=== PATIENT | male | born 1970 | race Two or more races ===

== ENCOUNTER 2024-10-14 15:43 | Emergency (ER) | payer OTHER ==
[~2024-10-14] VITALS: Ht 172.7 cm; Wt 99.0 kg
[2024-10-14 16:47] LABS: Urine Bacteria None Seen /hpf (None Seen)
[2024-10-14 16:59] LABS: Urine Blood Negative /uL (Negative); Urine Clarity Clear (Clear); Urine Color Yellow (Yellow); Urine Protein, UAD Negative (Negative); Urine Specific Gravity 1.023 (1.001-1.035); Urine Squamous Epithelial Cell None Seen /hpf (<5); Urine Urobilinogen Normal (Negative)
[2024-10-14 17:00] LABS: Urine WBC < 1 /HPF (0-3)
--- NOTE | 2024-10-14 17:02 | DVH ---
Indication: Left-sided testicular pain Technique: Real-time ultrasound images through the scrotum. Comparison: None Findings: Right testicle measures 3 x 2.4 x 2.9 cm. It has normal echogenicity . Right testicular calcificati on measuring 3 mm.. There is normal flow on color Doppler, with normal waveforms. The right epididyma l head measures 1.1 cm. Heterogeneous appearance of the right testicle with some increased vascular ity. Right testicular appendix. Cyst adjacent to the right testicle measuring 5 mm. Left varicocele measures 3 mm in diameter Left testicle measures 2.8 x 2.3 x 2. cm. It has normal echogenicity and echotexture, with no focal solid or cystic mass. There is normal flow on color Doppler, with normal waveforms. The left epididym al head measures 0.9 cm, and has no focal masses. There are moderate 2 large size bilateral hydroceles, [id number]. Impression: 1. [id number] bilateral hydroceles. 2. Left varicocele measuring 3 mm in diameter. 3. Heterogeneous appearance of the right epididymis with some increased vascularity, may represent ep ididymitis
--- NOTE | 2024-10-14 17:05 | ED.PDOC ---
General HPI Comments 54 year old male presents to the ED with a chief complaint of LT testicle pain onset 4 days. Patient states he has been experiencing LT testicle pain radiates to pelvic region for the past 4 days, worsened today. Denies any trauma, penile discharge, dysuria, hematuria, fevers, chills. No other symptoms or modifying factors present at this time. Vital signs were stable at arrival. Patient denies any unprotected sex. Chief Complaint: Testicle Pain Time Seen by MD: 16:35 Primary Care Provider: WOO Reviewed notes: Nurses Notes, Medications, Allergies Allergies: Coded Allergies: NO KNOWN ALLERGIES (Unverified , 10/14/24) Home Meds Active Scripts Ibuprofen Micronized (Ibuprofen) 800 Mg Tab, 800 MG PO Q8HP PRN, #30 TAB Prov:MIRI EARLY Pollo PAC 10/14/24 Information Source: Patient Mode of Arrival: Ambulatory Severity: Moderate Timing: Days Duration: Since onset Prehospital treatment: None Onset: Spontaneous Symptoms: Other (testicle pain) History of: None Location: Other (LT testicle) Penile discharge: None Modifying factors: None associated signs and symptoms: Other Past Medical History PAST MEDICAL HISTORY: Denies Surgical History: Denies all surgeries Family History Family History: Reviewed,noncontributory to illness, No family hx of Cancer, No family hx of DM, No family hx of Heart sixto, No family hx of HTN, No family hx ofKidney sixto, No family hx of Liver sixto, No family hx of Lung sixto, No family hx of Stroke Social History Smoker: Non-Smoker Alcohol: Denies ETOH Use Drugs: Denies Drug Use Lives In: Home Constitutional: denies: chills, diaphoresis, fatigue, fever, malaise, sweats, weakness, others EENTM: denies: blurred vision, double vision, ear bleeding, ear discharge, ear drainage, ear pain, ear ringing, eye pain, eye redness, hearing loss, mouth pain, mouth swelling, nasal discharge, nose bleeding, nose congestion, nose pain, photophobia, tearing, throat pain, throat swelling, voice changes, others Respiratory: denies: cough, hemoptysis, orthopnea, SOB at rest, shortness of breath, SOB with excertion, stridor, wheezing, others Cardiovascular: denies: chest pain, dizzy spells, diaphoresis, Dyspnea on exertion, edema, irregular heart beat, left arm pain, lightheadedness, palpitations, PND, syncope, others Gastrointestinal: denies: abdomen distended, abdominal pain, blood streaked bowels, constipated, diarrhea, dysphagia, difficulty swallowing, hematemesis, melena, nausea, poor appetite, poor fluid intake, rectal bleeding, rectal pain, vomiting, others Genitourinary: reports: testicle pain (LT); denies: burning, dysuria, flank pain, frequency, hematuria, incontinence, penile discharge, penile sore, pain, testicle swelling, urgency, others Neurological: denies: dizziness, fainting, headache, left sided numbness, left sided weakness, numbness, paresthesia, pre-existing deficit, right sided numbness, right sided weakness, seizure, speech problems, tingling, tremors, weakness, others Musculoskeletal: denies: back pain, gout, joint pain, joint swelling, muscle pain, muscle stiffness, neck pain, others Integumetry: denies: bruises, change in color, change in hair/nails, dryness, laceration, lesions, lumps, rash, wounds, others Allergic/Immunocompromised: denies: Difficulty Healing, Frequent Infections, Hives, Itching, others Hematologic/Lymphatic: denies: anemia, blood clots, easy bleeding, easy bruising, swollen glands, others Endocrine: denies: excessive hunger, excessive sweating, excessive thirst, excessive urination, flushing, intolerance to cold, intolerance to heat, unexplained weight gain, unexplained weight loss, others Psychiatric: denies: anxiety, bipolar disorder, depression, hopeless, panic disorder, schizophrenia, sleepless, suicidal, others All Other Systems: Reviewed and Negative Physical Exam General Appearance: Moderate Distress (Moderate distress due to testicular pain concerns.), Normal HEENT: Normal ENT Inspection, Pharynx Normal, TMs Normal Neck: Full Range of Motion, Non-Tender, Normal, Normal Inspection Respiratory: Chest Non-Tender, Lungs Clear, No Accessory Muscle Use, No Respiratory Distress, Normal Breath Sounds Cardiovascular: No Edema, No JVD, No Murmur, No Gallop, Normal Peripheral Pulses, Regular Rate/Rhythm Breast Exam: Deferred Gastrointestinal: No Organomegaly, Non Tender, No Pulsatile Mass, Normal Bowel Sounds, Soft Genitalia: Other (Left testicle is exquisitely to palpation throughout. No coil appreciated in left or right testicle. Right testicle has some sensitivity, but less than left. Cremaster reflexes are present.) Pelvic: Deferred Rectal: Deferred Extremities: No calf tenderness, Normal capillary refill, Normal inspection, Normal range of motion, Non-tender, No pedal edema Musculoskeletal : Apperance: Normal Neurologic: Alert, No Motor Deficits, Normal Affect, Normal Mood, No Sensory Deficits Cerebellar Function: Normal Reflexes: Normal Skin: Dry, Normal Color, Warm Lymphatic: No Adenopathy Was a procedure done? Was a procedure done?: No Differential Diagnosis Kidney stone (Female): Other (Testicular torsion, hydrocele, varicocele, epididymitis, UTI, testicular pain), N/A X-Ray, Labs, Meds, VS Vital Signs Date Time Temp Pulse Resp B/P (MAP) Pulse Ox O2 Delivery O2 Flow Rate FiO2 10/14/24 15:59 98.5 63 16 105/63 (77) 98 98.5 Lab Test 10/14/24 16:00 Range/Units Urine Color Yellow Yellow Urine Clarity Clear Clear Urine pH 6.0 5.0-9.0 Urine Specific [place] 1.023 1.001-1.035 Urine Protein Negative Negative Urine Ketones Negative Negative Urine Blood Negative Negative /uL Urine Nitrite Negative Negative Urine Bilirubin Negative Negative Urine Urobilinogen Normal Negative mg/dL Urine Leukocyte Esterase Negative Negative /uL Urine RBC <1 0 - 3 /hpf Urine Microscopic WBC < 1 0-3 /HPF Urine Squamous Epithelial Cells None seen <5 /hpf Urine Bacteria None seen None Seen /hpf Urine Glucose Normal Normal mg/dL X-Ray, Labs, Meds, VS Comment All studies performed the ED were evaluated by me personally. Urinalysis was unremarkable for any UTI formation. Testicular ultrasound revealed a moderate to large bilateral hydroceles. Additional findings of a left varicocele measuring 3 mm in diameter. Heterogeneous appearance of the right epididymis with some increased vascularity which may represent an epididymitis. Patient states he practices safe sexual activity. I will send the patient home with pain medication, but advised the patient that his symptoms continue he will have to return to ED for an STD workup and antibiotic management. Time of 1ST Reevaluation: 17:18 Reevaluation 1ST: Improved Consultation: PCP, Urology Patient Education/Counseling: Diagnosis, Treatment, Prognosis Family Education/Counseling: Diagnosis, Treatment, No Family Present Departure 1 Departure Time of Disposition: 17:19 Impression: Primary Impression: Hydrocele of testis Additional Impression: Left varicocele Disposition: HOME / SELF CARE / HOMELESS Condition: Stable Additional Instructions: Advised patient utilize pain medication as needed. If symptoms do not resolve in the next 4-5 days, patient will need to return to ED for STD workup and possible antibiotic treatments. Patient should follow up with the primary care provider in the next week for discussions related to today's visit and possible longer-term management. e-Prescriptions Hydrocodone-Acetaminophen (Hydrocodone Bitartrate/AC 5-325 mg) 1 Tab Tab 1 TAB PO Q6HP PRN, #20 TAB Prov: MIRI EARLY PAC 10/14/24 Ibuprofen Micronized (Ibuprofen) 800 Mg Tab 800 MG PO Q8HP PRN, #30 TAB Prov: MIRI EARLY PAC 10/14/24 Discharged With: Self, Friend Critical Care Note Critical Care Time?: No Stability Stability form required: No Heart Score Heart Score: Heart Score Response (Comments) Value History N/A 0 EKG N/A 0 Age N/A 0 Risk Factors N/A 0 Troponin N/A 0 Total 0 I personally scribed for MIRI EARLY PAC ([email or web address]) on 10/14/24 at 17:05. Elec tronically submitted by Wendie Newsome ([email or web address]). MIRI EARLY PAC October 14, 2024 17:05
[2024-10-14] MEDS ORDERED: IBUP-1455 PO (17:21)
[2024-10-14] MEDS ORDERED: HYDR-4902 PO (17:40)
[2024-10-14 17:54] VITALS: BP 121/74; TEMP 98.1
[2024-10-14] MEDS: KETOROLAC TROMETH 60MG/2ML VIAL IM ONE (18:37)
[2024-10-14] MEDS: HYDROcodone-ACET 5/325MG TAB PO ONE (18:37)
[2024-10-14 18:44] VITALS: PULSE 85; RESP 20; O2SAT 98
== END 2024-10-14 18:46 | disposition home or self-care (01) ==
LOC: ER 15:55
DX: N43.3 Hydrocele, unspecified (principal); I86.1 Scrotal varices; Z79.899 Other long term (current) drug therapy
CPT/HCPCS: 76870; 81001; 96372; 99285; J1885